=== PATIENT | female | born 1995 | race African-American/Black ===

== ENCOUNTER 2017-01-20 22:43 | Emergency (ER) | payer MEDICAID ==
[~2017-01-20] VITALS: Ht 167.6 cm; Wt 61.5 kg
[2017-01-21] MEDS ORDERED: SODIUM CHLORIDE 0.9% 1,000 ML IV ONE (00:20)
[2017-01-21] MEDS ORDERED: ONDANSETRON HCL 4MG/2ML VIAL IV ONE (00:30)
[2017-01-21] MEDS ORDERED: KETOROLAC 30MG/ML VIAL IV ONE (00:30)
[2017-01-21 00:38] LABS: HEMATOCRIT. 39.4 % (36.0-48.0); HEMOGLOBIN. 13.7 g/dL (12.0-16.0); MEAN CORPUSCULAR HEMOGLOBIN 32.2 pg (28.0-32.0); MEAN CORPUSCULAR VOLUME 92.9 fL (81.0-99.0); MEAN PLATELET VOLUME 9.2 fl (7.4-10.4); PLATELET 216 x1000/uL (130-400); RED BLOOD CELL COUNT 4.24 mill/uL (4.2-5.4)
[2017-01-21 00:44] LABS: CHLORIDE 101 mEq/L (98-107)
[2017-01-21 00:48] LABS: HCG SCREEN NEGATIVE
[2017-01-21 00:49] LABS: INR 1.1; PARTIAL THROMBOPLASTIN TIME 32.6 sec (24.0-34.0); PROTHROMBIN TIME 11.2 sec
[2017-01-21 00:53] LABS: CARBON DIOXIDE 25 mEq/L (21-32)
[2017-01-21 01:17] LABS: PLATELET ESTIMATE NORMAL
[2017-01-21 02:24] LABS: CLARITY URINE CLEAR (CLEAR); COLOR URINE YELLOW (YELLOW); GLUCOSE URINE NEGATIVE (NEGATIVE); KETONES URINE 3+ (NEGATIVE); LEUKOCYTE ESTERASE URINE NEGATIVE (NEGATIVE); NITRITE URINE NEGATIVE (NEGATIVE); OCCULT BLOOD URINE NEGATIVE (NEGATIVE); PROTEIN URINE NEGATIVE (NEGATIVE); SPECIFIC GRAVITY URINE 1.022 (1.005-1.030)
[2017-01-21 02:44] LABS: *AMPHETAMINES SCREEN URINE NEGATIVE (NEGATIVE); *BARBITURATES SCREEN URINE NEGATIVE (NEGATIVE); *BENZODIAZEPINES SCREEN URINE NEGATIVE (NEGATIVE); METHADONE URINE SCREEN NEGATIVE (NEGATIVE); OPIATES URINE SCREEN NEGATIVE (NEGATIVE); PHENCYCLIDINE URINE SCREEN NEGATIVE (NEGATIVE)
[2017-01-21] MEDS ORDERED: TRAMADOL 50MG TABLET PO ONE (02:45)
[2017-01-21 02:53] LABS: *COCAINE SCREEN URINE PRESUMTIVE POSITIVE (NEGATIVE)
[2017-01-21 03:11] LABS: CANNABINOID URINE SCREEN PRESUMTIVE POSITIVE (NEGATIVE)
[2017-01-21 03:20] VITALS: BP 106/69
== END 2017-01-21 03:22 | disposition home or self-care (01) ==
LOC: ER 22:43
DX: N94.6 Dysmenorrhea, unspecified (principal); T40.5X1A Poisoning by cocaine, accidental (unintentional), initial encounter; R10.30 Lower abdominal pain, unspecified; Z97.5 Presence of (intrauterine) contraceptive device; R03.0 Elevated blood-pressure reading, without diagnosis of hypertension; F12.10 Cannabis abuse, uncomplicated; Y92.89 Other specified places as the place of occurrence of the external cause
CPT/HCPCS: 36415; 76830; 76856; 80053; 80305; 81001; 81025; 84703; 85025; 85610; 85730; 86850; 86870; 86900; 86901; 96361; 96374; 96375; 99285; J1885; J2405; J7030; Z7610

== ENCOUNTER 2020-06-09 04:44 | Inpatient (IN) | payer MEDICAID ==
[~2020-06-09] VITALS: Ht 165.1 cm; Wt 59.0 kg
[2020-06-09] MEDS ORDERED: SODIUM CHLORIDE 0.9% 1,000 ML IV ONE ×3 (07:15→10:45)
[2020-06-09] MEDS ORDERED: ONDANSETRON HCL 4MG/2ML INJ IV ONE (07:15)
[2020-06-09] MEDS ORDERED: ACETAMINOPHEN 325MG TABLET PO ONE (07:15)
[2020-06-09 08:27] LABS: CHLORIDE 98 mEq/L (98-107)
[2020-06-09 09:18] LABS: HEMATOCRIT. 39.3 % (36.0-48.0); HEMOGLOBIN. 12.7 g/dL (12.0-16.0); MEAN CORPUSCULAR HEMOGLOBIN 38.3 pg (28.0-32.0); MEAN CORPUSCULAR VOLUME 118.3 fL (81.0-99.0); MEAN PLATELET VOLUME 8.2 fl (7.4-10.4); PLATELET 360 x1000/uL (130-400); RED BLOOD CELL COUNT 3.32 mill/uL (4.2-5.4); RED CELL DISTRIBUTION WIDTH 20.7 % (11.6-14.6)
[2020-06-09 10:15] LABS: PLATELET ESTIMATE SLIGHTLY INCREASED
[2020-06-09 11:14] LABS: CHLORIDE 108 mEq/L (98-107)
[2020-06-09] MEDS ORDERED: LORAZEPAM 2MG/ML CPJ IV ONE (11:45)
[2020-06-09] MEDS ORDERED: ACETAMINOPHEN 325MG TABLET PO PRN (15:00)
[2020-06-09] MEDS ORDERED: ONDANSETRON HCL 4MG/2ML INJ IV PRN (15:00)
[2020-06-09] MEDS ORDERED: SODIUM POLYSTYRENE SULFONATE 15 G/60 ML BOT PO NR (15:24)
[2020-06-09 15:51] VITALS: BP 129/88
[2020-06-09 16:00] VITALS: BP 138/88
[2020-06-09] MEDS ORDERED: ENOXAPARIN 40MG/0.4ML SYR SUBCUT SCH (16:00)
[2020-06-09] MEDS ORDERED: SODIUM BICARBONATE 150 MEQ in DEXTROSE 5% WATER 1,000 ML IV SCH (16:00)
[2020-06-09] MEDS ORDERED: SODIUM BICARBONATE 50 MEQ in DEXTROSE 5% WATER 1,000 ML IV SCH (16:00)
[2020-06-09] MEDS ORDERED: LORAZEPAM 2MG/ML CPJ IV PRN (17:15)
[2020-06-09] MEDS: ENOXAPARIN 40MG/0.4ML SYR SUBCUT SCH (17:47)
[2020-06-09] MEDS: OMEPRAZOLE 20MG CAPSULE EXTENDED RELEASE PO SCH (17:47)
[2020-06-09] MEDS: FOLIC ACID 1MG TABLET PO SCH (17:48)
[2020-06-09] MEDS: MULTIVITAMINS,THER W-MINERALS TABLET PO SCH (17:48)
[2020-06-09] MEDS: THIAMINE HCL 100MG TABLET PO SCH (17:48)
[2020-06-09] MEDS: SODIUM BICARBONATE 150 MEQ in DEXTROSE 5% WATER 1,000 ML IV SCH (17:52)
[2020-06-09 19:47] LABS: PHOSPHORUS 2.1 mg/dL (2.5-4.9)
[2020-06-09 19:54] LABS: CLARITY URINE CLEAR (CLEAR); COLOR URINE YELLOW (YELLOW); KETONES URINE 4+ (NEGATIVE); LEUKOCYTE ESTERASE URINE TRACE (NEGATIVE); NITRITE URINE NEGATIVE (NEGATIVE); OCCULT BLOOD URINE 2+ (NEGATIVE); PH URINE 5.5 (4.5-8.0); PROTEIN URINE 1+ (NEGATIVE); UROBILINOGEN URINE 0.2 E.U./dL (0.2-1.0)
[2020-06-09 20:11] LABS: *BARBITURATES SCREEN URINE NEGATIVE (NEGATIVE)
[2020-06-09 20:12] LABS: *AMPHETAMINES SCREEN URINE NEGATIVE (NEGATIVE); *BENZODIAZEPINES SCREEN URINE NEGATIVE (NEGATIVE); *COCAINE SCREEN URINE NEGATIVE (NEGATIVE); CANNABINOID URINE SCREEN NEGATIVE (NEGATIVE); METHADONE URINE SCREEN NEGATIVE (NEGATIVE); OPIATES URINE SCREEN NEGATIVE (NEGATIVE); PHENCYCLIDINE URINE SCREEN NEGATIVE (NEGATIVE)
[2020-06-09 20:53] VITALS: BP 155/91
[2020-06-09] MEDS: CHLORDIAZEPOXIDE 25MG CAPSULE PO SCH (21:48)
[2020-06-10] VITALS: BP 126/95
[2020-06-10 04:00] VITALS: BP 126/95
[2020-06-10] MEDS: SODIUM BICARBONATE 150 MEQ in DEXTROSE 5% WATER 1,000 ML IV SCH (05:13)
[2020-06-10] MEDS: OMEPRAZOLE 20MG CAPSULE EXTENDED RELEASE PO SCH (06:23)
[2020-06-10] MEDS: CHLORDIAZEPOXIDE 25MG CAPSULE PO SCH ×3 (06:23→21:01)
[2020-06-10 08:03] LABS: BASOPHILS % 0.2 % (0.0-2.0); EOSINOPHILS % 0.2 % (0.0-5.0); HEMATOCRIT. 35.2 % (36.0-48.0); LYMPHOCYTES % 13.7 % (20.0-50.0); MEAN CORPUSCULAR VOLUME 111.4 fL (81.0-99.0); MEAN PLATELET VOLUME 8.6 fl (7.4-10.4); MONOCYTES % 4.9 % (2.0-8.0); PLATELET 247 x1000/uL (130-400); RED BLOOD CELL COUNT 3.16 mill/uL (4.2-5.4); RED CELL DISTRIBUTION WIDTH 20.7 % (11.6-14.6)
[2020-06-10 08:13] LABS: CHLORIDE 98 mEq/L (98-107)
[2020-06-10] MEDS: FOLIC ACID 1MG TABLET PO SCH (08:52)
[2020-06-10] MEDS: THIAMINE HCL 100MG TABLET PO SCH (08:52)
[2020-06-10] MEDS: MULTIVITAMINS,THER W-MINERALS TABLET PO SCH (08:52)
[2020-06-10] MEDS ORDERED: POTASSIUM CHLORIDE 20MEQ TABLET SR PO NR (10:00)
[2020-06-10] MEDS ORDERED: POTASSIUM CHLORIDE INJ 40 MEQ in DEXT 5% WATER 250 ML IV NR (11:00)
[2020-06-10 12:00] VITALS: BP 137/99
[2020-06-10] MEDS ORDERED: POTASSIUM-SODIUM PHOSPHATE POWDER PACKET PO NR (14:00)
[2020-06-10 16:00] VITALS: BP 137/99
[2020-06-10] MEDS: ENOXAPARIN 40MG/0.4ML SYR SUBCUT SCH (18:54)
[2020-06-10 20:00] VITALS: BP 119/86
[2020-06-11] VITALS (9 sets, daily range): BP systolic 118–138; BP diastolic 86–99
[2020-06-11] MEDS: FAMOTIDINE 20MG TABLET PO SCH ×2 (06:05→16:48)
[2020-06-11] MEDS: CHLORDIAZEPOXIDE 25MG CAPSULE PO SCH ×2 (06:05→13:16)
[2020-06-11 06:07] LABS: CHLORIDE 96 mEq/L (98-107)
[2020-06-11 06:18] LABS: PHOSPHORUS 1.1 mg/dL (2.5-4.9)
[2020-06-11] MEDS ORDERED: POTASSIUM CHLORIDE 20MEQ TABLET SR PO NR (07:30)
[2020-06-11] MEDS: THIAMINE HCL 100MG TABLET PO SCH (08:57)
[2020-06-11] MEDS: FOLIC ACID 1MG TABLET PO SCH (08:57)
[2020-06-11] MEDS: MULTIVITAMINS,THER W-MINERALS TABLET PO SCH (08:57)
[2020-06-11] MEDS ORDERED: MAGNESIUM OXIDE 400MG TABLET PO SCH (09:00)
[2020-06-11] MEDS ORDERED: POTASSIUM CHLORIDE INJ 40 MEQ in DEXT 5% WATER 250 ML IV SCH (09:00)
[2020-06-11] MEDS ORDERED: POTASSIUM PHOS,M-BASIC-D-BASIC 20 MMOL in DEXT 5% WATER 243.3333 ML IV SCH (10:00)
[2020-06-11] MEDS: ENOXAPARIN 40MG/0.4ML SYR SUBCUT SCH (16:48)
[2020-06-11] MEDS ORDERED: FOLI-43 PO ×2 (17:21→22:13)
[2020-06-11] MEDS ORDERED: THIA100T72 PO ×2 (17:21→22:15)
[2020-06-11] MEDS ORDERED: L25 PO (17:21)
[2020-06-11] MEDS ORDERED: FAMO20TA8 PO (17:21)
[2020-06-11 20:35] LABS: PHOSPHORUS 2.2 mg/dL (2.5-4.9)
[2020-06-11] MEDS ORDERED: FAMO20TA8 MT (22:12)
[2020-06-11] MEDS ORDERED: CHLO25CA10 PO (22:19)
== END 2020-06-11 23:00 | disposition home or self-care (01) | DRG 775 ==
LOC: ER 04:44 → 7EST 11:35 → ENRESERV 11:54 → CANRESERV 11:54 → ENRESERV 14:24 → ER 15:30 → 5WST 06-10 10:37
PROVIDERS: ADMIT Internal Medicine; ATTEND Internal Medicine
DX: F10.188 Alcohol abuse with other alcohol-induced disorder (principal); E87.2 Acidosis; E87.5 Hyperkalemia; E87.1 Hypo-osmolality and hyponatremia; R74.01 Elevation of levels of liver transaminase levels; Z20.828 Contact with and (suspected) exposure to other viral communicable diseases; F10.10 Alcohol abuse, uncomplicated; Y90.9 Presence of alcohol in blood, level not specified; R00.0 Tachycardia, unspecified; Z71.41 Alcohol abuse counseling and surveillance of alcoholic
CPT/HCPCS: 36415; 71045; 80048; 80053; 80305; 81003; 83036; 83605; 83735; 84100; 84132; 85025; 87426; 87635; 93005; 99291; J1650; J2060; J2405; J3480; J3490; J7030; J7060; J7070

== ENCOUNTER 2022-10-12 13:03 | Emergency (ER) | payer MEDICAID, OTHER ==
[~2022-10-12] VITALS: Ht 172.7 cm; Wt 80.0 kg
[~2022-10-12 13:03] MED LIST: CHLO25CA10 PO; FAMO20TA8 MT; FOLI-43 PO; THIA100T72 PO
[2022-10-12] MEDS ORDERED: SODIUM CHLORIDE 0.9% 1,000 ML IV ONE ×2 (13:30→15:45)
[2022-10-12] MEDS ORDERED: METOCLOPRAMIDE HCL 10MG/2ML VIAL IV ONE (13:30)
[2022-10-12 14:44] LABS: CHLORIDE 95 mEq/L (98-107)
[2022-10-12 14:48] LABS: HCG SCREEN NEGATIVE
[2022-10-12 14:52] LABS: BASOPHILS % 0.4 % (0.0-2.0); HEMATOCRIT. 45.7 % (36.0-48.0); HEMOGLOBIN. 15.1 g/dL (12.0-16.0); MEAN CORPUSCULAR HEMOGLOBIN 32.6 pg (28.0-32.0); MEAN PLATELET VOLUME 8.8 fl (7.4-10.4); MONOCYTES % 9.7 % (2.0-8.0); NEUTROPHILS % 77.9 % (40.0-76.0); PLATELET 210 x1000/uL (130-400); RED BLOOD CELL COUNT 4.62 mill/uL (4.2-5.4); RED CELL DISTRIBUTION WIDTH 16.1 % (11.6-14.6)
[2022-10-12] MEDS ORDERED: METOCLOPRAMIDE HCL 10MG/2ML VIAL IV NR (15:30)
[2022-10-12] MEDS ORDERED: KETOROLAC 30MG/ML VIAL IV STA (15:38)
[2022-10-12 17:53] LABS: CLARITY URINE CLOUDY (CLEAR); COLOR URINE YELLOW (YELLOW); KETONES URINE 4+ (NEGATIVE); LEUKOCYTE ESTERASE URINE TRACE (NEGATIVE); NITRITE URINE NEGATIVE (NEGATIVE); OCCULT BLOOD URINE 3+ (NEGATIVE); PROTEIN URINE 1+ (NEGATIVE); SPECIFIC GRAVITY URINE 1.025 (1.005-1.030); UROBILINOGEN URINE 0.2 E.U./dL (0.2-1.0)
[2022-10-12 18:23] VITALS: BP 144/97
== END 2022-10-12 18:53 | disposition short-term general hospital (02) ==
LOC: ER 13:08 → CANBEDREQ 16:09 → ER 18:53
DX: K85.20 Alcohol induced acute pancreatitis without necrosis or infection (principal); Z79.899 Other long term (current) drug therapy; Z20.822 Contact with and (suspected) exposure to COVID-19
CPT/HCPCS: 36415; 80053; 80320; 81003; 82962; 83690; 84703; 85025; 87426; 96361; 96374; 96375; 96376; 99284; C9803; J1885; J2765; J7030; G0480